=== PATIENT | female | born 1970 | race Caucasian/White ===

== ENCOUNTER 2017-12-23 17:13 | Emergency (ER) | payer OTHER ==
[2017-12-23 17:23] VITALS: BP 133/95; PULSE 100; TEMP 99.4; BMI 22.1
--- NOTE | 2017-12-23 17:27 | PDOC ---
History of Present Illness - General History Source: Patient, Family Exam Limitations: No Limitations - History of Present Illness Initial Comments: 12/23/17 17:28 The patient is a 47 year old female, with no significant past medical history, who presents to the emergency department complaining of four days of generalized body aches, fever, nausea with vomiting, dry cough, and progressively worsening congestion. The patient reports she was diagnosed with the flu on Thursday by her PCP Dr. Carbajal and has been taking Tamiflu 2x a day and 600 mg of Advil every 8 hours. However, she reports she is feeling like her congestion and cough is getting worse. The patient reports her last fever was last night and reports taking 600 mg of Advil a half hour ago prior to arrival. She denies recent chills, headache or dizziness. She denies recent diarrhea or constipation. She denies recent dysuria, frequency, urgency or hematuria. She denies recent chest pain or shortness of breath. Allergies: NKA Past surgical history: None reported. Social history: Nonsmoker. Denies EtOH use and recreational drug use. Primary Care Physician: Dr. Carbajal <Jimmy Ray - Last Filed: 12/23/17 17:28> <Aris Quevedo - Last Filed: 12/23/17 18:10> - General Chief Complaint: Cold Symptoms Stated Complaint: FLU Time Seen by Provider: 12/23/17 17:16 Past History <Jimmy Ray - Last Filed: 12/23/17 17:28> - Past Medical History COPD: No - Suicide/Smoking/Psychosocial Hx Smoking History: Never smoked Hx Alcohol Use: No Drug/Substance Use Hx: No Substance Use Type: None <Aris Quevedo - Last Filed: 12/23/17 18:10> - Past Medical History Allergies/Adverse Reactions: Allergies Allergy/AdvReac Type Severity Reaction Status Date / Time No Known Allergies Allergy Verified 12/23/17 17:18 Home Medications: Ambulatory Orders Azithromycin [Zithromax -] 250 mg PO UTDICT #6 tab 12/23/17 Guaifenesin AC [Robitussin-AC] 1 - 2 tsp PO Q4HWA PRN #120 ml MDD 8 12/23/17 Ibuprofen 600 mg PO Q8H PRN 12/23/17 Oseltamivir Phosphate [Tamiflu -] 75 mg PO DAILY 12/23/17 Review of Systems - Review of Systems Comments:: 12/23/17 17:30 GENERAL/CONSTITUTIONAL:+Fever. No chills. No weakness. HEAD, EYES, EARS, NOSE AND THROAT: No change in vision. No ear pain or discharge. No sore throat. CARDIOVASCULAR: No chest pain or shortness of breath. RESPIRATORY: +Dry cough. No wheezing, or hemoptysis. GASTROINTESTINAL: +Nausea. +Vomit. No diarrhea or constipation. GENITOURINARY: No dysuria, frequency, or change in urination. MUSCULOSKELETAL: +Generalized body aches. No neck or back pain. SKIN: No rash NEUROLOGIC: No headache, vertigo, loss of consciousness, or change in strength/ sensation. ENDOCRINE: No increased thirst. No abnormal weight change. HEMATOLOGIC/LYMPHATIC: No anemia, easy bleeding, or history of blood clots. ALLERGIC/IMMUNOLOGIC: No hives or skin allergy. <Jimmy Ray - Last Filed: 12/23/17 17:28> *Physical Exam - Vital Signs Last Vital Signs Temp Pulse Resp BP Pulse Ox 99.4 F 100 H 18 133/95 98 12/23/17 17:14 12/23/17 17:14 12/23/17 17:14 12/23/17 17:14 12/23/17 17:14 <Jimmy Ray - Last Filed: 12/23/17 17:28> - Vital Signs Last Vital Signs Temp Pulse Resp BP Pulse Ox 99.4 F 100 H 18 133/95 98 12/23/17 17:14 12/23/17 17:14 12/23/17 17:14 12/23/17 17:14 12/23/17 17:14 <Aris Quevedo - Last Filed: 12/23/17 18:10> Medical Decision Making - Medical Decision Making 12/23/17 17:25 47-year-old female, otherwise healthy, with positive flu test Thursday, begun on Tamiflu at that time. Persistent fever and productive cough. Physical exam: Temperature 99.6. Remainder vital signs normal Alert, no respiratory distress, cooperative HEENT clear Neck supple without bruit mass or nodes Wheezes and rhonchi heard primarily at the right base posteriorly. No tachypnea. O2 sat is adequate CV regular without murmur rub or gallop Abdomen benign Skin clear, no rash, adequate turgor and mucous membranes Impression: Persistent flu symptoms Plan: Chest x-ray, further medical management depending on results. 12/23/17 18:01 Chest x-ray reveals right middle lobe infiltrate. No effusions. As noted above, the respiratory rate is 18 and unlabored and the oxygen saturation 98% on room air. The patient is otherwise healthy with no apparent risk factors. Treatment as an outpatient with close observation and follow-up, and return if there is any sign of worsening symptoms. Begin azithromycin. Close follow-up. Return immediately if there is increased shortness of breath, chest pain, or fever. 12/23/17 18:10 <Aris Quevedo - Last Filed: 12/23/17 18:10> *DC/Admit/Observation/Transfer - Attestations Scribe Attestion: 12/23/17 17:30 Documentation prepared by Jimmy Ray, acting as medical logistics specialist for Aris Quevedo MD. <Jimmy Ray - Last Filed: 12/23/17 17:28> - Discharge Dispostion Admit: No <Aris Quevedo - Last Filed: 12/23/17 18:10> Diagnosis at time of Disposition: Viral pneumonia - Discharge Dispostion Disposition: HOME Condition at time of disposition: Stable - Prescriptions Prescriptions: Azithromycin [Zithromax -] 250 mg PO UTDICT #6 tab Guaifenesin AC [Robitussin-AC] 1 - 2 tsp PO Q4HWA PRN #120 ml MDD 8 PRN Reason: Cough - Referrals Referrals: Nneka Carbajal MD [Primary Care Provider] - - Patient Instructions Printed Discharge Instructions: DI for Pneumonia -- Adult Additional Instructions: Rest. Stay indoors. Good nutrition and hydration. Medication as directed. Recheck immediately if there is high fever, shortness of breath or other difficulty breathing, chest pain, or dizziness. Otherwise follow-up with your primary physician in 2-3 days - Post Discharge Activity
== END 2017-12-23 18:18 | disposition home or self-care (01) ==
LOC: FER 17:13
DX: J12.9 Viral pneumonia, unspecified (principal)
CPT/HCPCS: 71046-TC-FY; 84703; 99281-25

== ENCOUNTER 2018-04-29 22:24 | Emergency (ER) | payer OTHER ==
[2018-04-29 22:37] VITALS: BP 148/93; PULSE 87; TEMP 98.8; BMI 21.2
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
[2018-04-29] MEDS ORDERED: HYDROmorphone HCL CARPU-JECT 1 MG/1 ML DISP.SYRIN IM ONE (23:34)
[2018-04-29] MEDS ORDERED: HYDROmorphone HCL CARPU-JECT 2 MG/1 ML DISP.SYRIN ONE (23:36)
[2018-04-30] MEDS ORDERED: DIPHTH,PERTUSS(ACELL),TET 0.5 ML DISP.SYRIN IM ONE (00:08)
== END 2018-04-30 00:17 | disposition home or self-care (01) ==
LOC: FER 22:24
PROC: 2W2FX4Z Dressing of Left Hand using Bandage (ICD-10-PCS; principal; 2018-04-29)
PROC: 3E0234Z Introduction of Serum, Toxoid and Vaccine into Muscle, Percutaneous Approach (ICD-10-PCS; 2018-04-29)
PROC: 3E0234Z Introduction of Serum, Toxoid and Vaccine into Muscle, Percutaneous Approach (ICD-10-PCS; 2018-04-29)
DX: T23.202A Burn of second degree of left hand, unspecified site, initial encounter (principal); T23.262A Burn of second degree of back of left hand, initial encounter; X12.XXXA Contact with other hot fluids, initial encounter; Y93.89 Activity, other specified; Y92.9 Unspecified place or not applicable
CPT/HCPCS: 90715; 99282-25